=== PATIENT | female | born 1955 | race Caucasian/White ===

== ENCOUNTER 2017-04-04 13:59 | Emergency (ER) | payer OTHER ==
[~2017-04-04] VITALS: Ht 170.2 cm; Wt 104.1 kg
[~2017-04-04 13:59] MED LIST: AMIT10TA6 PO; APIX5TAB PO; ASPI81TA3 PO; ATRV10T PO; Budesonide PO; EPIN0.3P2 IJ; FLEC100T2 PO; FLUO20CA25 PO; GABA-500 PO; GABA-502 PO; LOSA50TA3 PO; MULT-621 PO; OMEG1CAP5 PO; VERA180T5 PO
[2017-04-04 14:07] VITALS: BP 164/107; PULSE 75; RESP 24; O2SAT 98
--- NOTE | 2017-04-04 14:34 | ED.REPORT ---
HPI-Extremity Problem Lower Date of Service April 04, 2017 ED Provider: Bennett Pulliam MD Patient is a 61 year old female with a history of gastric bypass revision, hypertension and atrial fibrillation who had a partial knee replacement a week ago who presents to the ED due to increased right knee pain after a fall 4 days ago. Associated symptoms include mild erythema around the surgical wound, and pain with bearing weight on her right leg. She reports that she was seen at prior to arrival to the ED today but did not have an X-ray done. She denies fever, chills, increasing redness, warth or discharge from the wound. She has an appointment with her orthopedic surgeon in 2 days. Nursing Notes Stated Complaint: RIGHT KNEE PAIN Chief Complaint: Extremity Trauma Nursing Notes Reviewed: Yes Allergies: Coded Allergies: Aminoglycosides (Verified Allergy, Severe, 01/06/15) clindamycin (Verified Allergy, Severe, Rash, 09/04/14) diclofenac (Verified Allergy, Severe, Anaphylaxis, 09/04/14) diphenhydramine (Verified Allergy, Severe, Hives, 07/01/16) patient states benadryl makes her hyper. does not give her hives. ll doxylamine (Verified Allergy, Severe, Hives, 09/04/14) eszopiclone (Verified Allergy, Severe, Hives, 09/04/14) + anxiety misoprostol (Verified Allergy, Severe, Anaphylaxis, 09/04/14) sertraline (Verified Allergy, Severe, Headache, 09/04/14) sulfamethoxazole (Verified Allergy, Severe, Rash, 09/04/14) trazodone (Verified Allergy, Severe, Headache, 09/04/14) trimethoprim (Verified Allergy, Severe, Rash, 09/04/14) fluticasone (Verified Allergy, Intermediate, Rash,Itching,, 09/04/14) zolpidem (Verified Allergy, Intermediate, sleep walk, 09/04/14) Iodinated Contrast Media - Oral and (Unverified Allergy, Mild, Rash, Itching,, 07/01/16) patient states she had itching post iv contrast in 2014. Benadryl was not given after exam, but patient agreed that she should be pre treated for any other cat scans when I talked to her 07/01/16. ll aloe vera (Verified Allergy, Unknown, 09/04/14) aripiprazole (Verified Adverse Reaction, Intermediate, Agitation, 09/04/14 ) bupropion (Verified Adverse Reaction, Intermediate, Headache, 09/04/14) hydrocodone (Verified Adverse Reaction, Intermediate, gi problems, ) lisinopril (Verified Adverse Reaction, Intermediate, cough, 09/04/14) Uncoded Allergies: STREPTOMYCIN SULFATE (Generic Allergy) (Allergy, Unknown, Y, 10/11/05) Scheduled ([Budesonide]) 3 MG CAPCR 9 MG PO DAILY Amitriptyline (Amitriptyline) 10 Mg Tablet 10 MG PO AM Amitriptyline (Amitriptyline) 10 Mg Tablet 20 MG PO HS Apixaban (Eliquis) 5 Mg Tablet 5 MG PO BID Aspirin Chew (Aspirin Chew) 81 Mg Tab.chew 81 MG PO DAILY Atorvastatin (Lipitor) 10 Mg Tab 10 MG PO HS Flecainide Acetate (Flecainide Acetate) 100 Mg Tablet 100 MG PO BID Fluoxetine (Fluoxetine) 20 Mg Capsule 20 MG PO DAILY Gabapentin (Gabapentin) 100 Mg Capsule 100 MG PO DAILY Gabapentin (Gabapentin) 300 Mg Capsule 300 MG PO HS Losartan Potassium (Cozaar) 50 Mg Tablet 50 MG PO DAILY Multivitamin with Minerals (Multiple Vitamin) 1 Each Tablet 1 EACH PO DAILY [place]-3 Fatty Acids/Fish Oil (Fish Oil 1,000 mg Capsule) 1 Each Capsule 3 EACH PO DAILY Verapamil ER (Verapamil ER) 180 Mg Tablet.er 180 MG PO DAILY Scheduled PRN Epinephrine (Epipen 2-Jace) 0.3 Mg/0.3 Ml Auto.injct 0.3 MG IJ PRN For Anaphyllaxis General Time Seen by MD: 14:23 Chief Complaint Knee injury right Hx Obtained From: Patient Arrived By: Walk-in Onset Occurred: 4 days ago Symptom Duration: Since onset Location: : Knee right Immunizations: Unknown Recent Healthcare: No recent hospitalization, Recent doctor visit Past Medical History Past Medical History atrial fibrillation depression-recent hospitalization for suicide attempt/overdose ingestion fibromyalgia with "fibrofog" PTSD sleep apnea hx of heart murmur-had scarlet fever age 2 hypertension dyslipidemia anxiety Reports: Hyperlipidemia, Hypertension Past Surgical History gastric bypass ovarian tumor removed-oopohrectomy back surgery x 2 toe surgery knee surgery left hip surgery for bone spurs. Reports: Cholecystectomy, Tonsillectomy Smoking History Former Smoker Social History Alcohol Use: In recovery Drug Use: Denies drug use Other Social History: Ambulatory Status Independent Review of Systems Review of Systems Note: erythema around the right knee Constitutional: Reports: Chills, Denies: Fever Musculoskeletal: Reports: Extremity pain Neurologic: Reports: Problem walking Complete sys rev & neg: except as marked. Respiratory: Denies: Non-productive cough, Shortness of breath Physical Exam Initial Vital Signs Vital Signs (First) Date Time Temp Pulse Resp B/P Pulse Ox O2 Delivery O2 Flow Rate FiO2 04/04/17 14:07 36.8 75 24 164/107 98 Room Air Initial VS: Reviewed LOWER EXTREMITIES: anterior right knee has a well appearing surgical incision with mild erythema consistent with normal healing indurated no purulent discharge no evidence of proximally spreading erythema no unilateral calf swelling Ankle / Foot: Atraumatic, Full range of motion, No swelling General/Constitutional: Awake, Alert, No acute distress Respiratory / Chest: Atraumatic, No respiratory distress Skin: Atraumatic, Color NL, No rash, Warm, Dry Neurologic: Oriented X3, Speech NL, No motor deficits, No sensory deficits Head / Eyes: Atraumatic, Normocephalic, PERRL, EOMI Upper Extremity / MS: Atraumatic, Full range of motion Psychiatric: Affect NL, Mood NL Interpretation & Diagnostics Interpretation & Diagnostics: KNEE CT: IMPRESSION: 1. Postsurgical changes demonstrated status post medial unicompartmental arthroplasty. 2. Mild irregularity and fragmentation along the medial aspect of the tibial spine along the surgical margin likely reflects postsurgical changes. An acute fracture is not fully excluded but given the location isolated fracture in this region appears less likely. 3. Bvszz-pe-rldrqeky size joint effusion and postsurgical changes demonstrated within the anterior soft tissues. Dictated by: Haroon Arroyo M.D. on 04/04/2017 at 15:52 Approved by: Haroon Arroyo M.D. on 04/04/2017 at 16:00 X-Ray Interpretation Xray Interpretation: IMPRESSION: 1. Suspect fracture of the tibial eminence. 2. Small knee joint effusion. 3. Chondrocalcinosis. 4. Medial hemiarthroplasty with intact prosthesis. Dictated by: Nirmal Blanchard M.D. on 04/04/2017 at 16:04 Approved by: Nirmal Blanchard M.D. on 04/04/2017 at 16:07 X-Ray Ordered: Knee right Interpretation / Wet Read by: Interpret - Radiologist Re-Eval/Medical Decision Med Decision/Clinical Course Patient is a 61 year old female with a history of gastric bypass revision, hypertension and atrial fibrillation who had a partial knee replacement a week ago who presents to the ED due to increased right knee pain after a fall 4 days ago. Associated symptoms include mild erythema around the surgical wound, and pain with bearing weight on her right leg. She reports that she was seen at prior to arrival to the ED today but did not have an X-ray done. She denies fever, chills, increasing redness, warth or discharge from the wound. She has an appointment with her orthopedic surgeon in 2 days. Here in the emergency department the patient is afebrile stable vital signs and in no apparent distress. Examination as above reveals mild erythema surrounding her surgical site consistent with normal wound healing. There is no purulent drainage, induration approximately extending redness suggestive of infection or cellulitis. Plain films of the right knee were obtained as below: 1. Suspect fracture of the tibial eminence. 2. Small knee joint effusion. 3. Chondrocalcinosis. 4. Medial hemiarthroplasty with intact prosthesis. Given the presence of possible fracture I opted to proceed with a CT of her knee as below: 1. Postsurgical changes demonstrated status post medial unicompartmental arthroplasty. 2. Mild irregularity and fragmentation along the medial aspect of the tibial spine along the surgical margin likely reflects postsurgical changes. An acute fracture is not fully excluded but given the location isolated fracture in this region appears less likely. 3. Qircr-zm-nwopqcbi size joint effusion and postsurgical changes demonstrated within the anterior soft tissues. Above findings all seem most consistent with normal postoperative examination. Patient remained afebrile with no signs of infection. She has close follow-up in a couple of days with orthopedic surgeon and is advised to return to the emergency room immediately should she develop any fevers, chills or extending erythema. I do not feel that antibiotics are immediately warranted given her presentation today. She was able to weight-bear on her leg and I feel that she is appropriate for discharge. Prior to discharge follow-up and return precautions were reviewed in detail with the patient who verbalized understanding and agreement with the plan. The patient was discharged in stable condition. Re-Evaluation/Progress #1: Time of Eval: 15:46 Re-Evaluation/Progress Note: Discussed plan for CT. Re-Evaluation/Progress #2: Time of Eval: 17:13 Re-Evaluation/Progress Note: Discussed results and plan for discharge. The patient understands and agrees to the plan for discharge. All questions were addressed. Counseled Regarding: Diagnosis, Lab results, Need for follow-up, When/why to return to ED Discharge & Departure Impression: Primary Impression: Fall Encounter type: initial encounter Qualified Code: W19.XXXA - Unspecified fall, initial encounter Additional Impressions: Post-op pain Encounter for postoperative wound check History of total knee replacement Laterality: right Qualified Code: Z96.651 - Presence of right artificial knee joint Disposition: Home Discharge Condition All VS Reviewed: Yes Condition: Stable Patient Instructions: Knee Pain (ED) Additional Instructions: Thank you for seeking care at the emergency room. It is difficult for us to make definitive diagnoses in the ED but we believe that you are experiencing normal redness and healing from your surgery. There was no evidence of infection. Your X-ray and CT looked normal. Our primary goal today in the ED was to evaluate you for any life-threatening conditions. Your evaluation was reassuring. You can continue to ice your knee as needed to help. You can take Tylenol as needed for pain. Keep your appointment with your Orthopedic surgeon for follow up. You should return to the ED immediately if the redness spreads further than it is now, has pus drainage, you develop fever or any other concerning signs or symptoms. Thank you for letting us partake in your care today. Referrals: Sepideh Thomas (PCP) (Family) Fer Attestation Portions of this note were transcribed by Bebe Avelar. I, Dr. Pulliam personally performed the history, physical exam and medical decision-making; I reviewed and confirmed the accuracy of the information in the transcribed note. Signed by: Fer Whitley, 04/04/17 and 1720 copies to: Sepideh Thomas Beck O MD April 04, 2017 14:34 Jonna Avelar April 04, 2017 15:46
--- NOTE | 2017-04-04 16:09 | DRSVH ---
PROCEDURE: X-RAY RIGHT KNEE, THREE VIEWS ([id number]) INDICATIONS: recent surgery, pain/fall TECHNIQUE: 3 views of the knee were acquired. COMPARISON: [facility], CR, KNEE SERIES RT, 03/02/2017, 11: 25. [facility], CR, KNEE 3VW (RT), 09/04/2012, 15:01. FINDINGS: Bones: Probable fracture of the tibial eminence. There is arthroplasty with prosthesis in the medial femorotibial compartment. Chondrocalcinosis is present in the lateral femorotibial joint. No suspici ous bony lesions. Soft tissues: Small knee joint effusion. No suspicious soft tissue calcifications. Diffuse soft tis jayshree swelling. IMPRESSION: 1. Suspect fracture of the tibial eminence. 2. Small knee joint effusion. 3. Chondrocalcinosis. 4. Medial hemiarthroplasty with intact prosthesis. Dictated by: Nirmal Blanchard M.D. on 04/04/2017 at 16:04 Approved by: Nirmal Blanchard M.D. on 04/04/2017 at 16:07
--- NOTE | 2017-04-04 17:02 | DRSVH ---
PROCEDURE: CT KNEE RIGHT W/O CONTRAST ([id number]) INDICATIONS: Status post fall one week postop with possible fracture on x-ray. TECHNIQUE: Noncontrast 1-1.5 mm axial sections acquired from the mid-patella to the proximal tibia, with coronal and sagittal reformats. COMPARISON: [facility], CR, KNEE SERIES RT, 03/02/2017, 11: 25. [facility], CR, XR KNEE 3VW RT, 04/04/2017, 15:39. FINDINGS: Image quality: There is extensive associated metallic streak artifact from patient's surgical hardwar e limiting evaluation. Bones: There are postsurgical changes status post medial unicompartmental arthroplasty. There is ext ensive associated metallic streak artifact limiting evaluation. There is also osteopenia of the visu alized osseous structures limiting evaluation for fracture lines. There is mild irregularity and fra gmentation along the medial aspect of the tibial spine along the fracture margin corresponding to the finding seen on recent x-ray. There is no definite displaced or depressed medial tibial plateau fra cture. The lateral tibial plateau appears intact without depressed fracture. The distal femur also appears grossly intact. Soft tissues: There is a small to moderate size joint effusion likely related to recent surgery. Pos toperative changes also demonstrated within the anterior soft tissues with a surgical incision as wel l as foci of tissue gas. IMPRESSION: 1. Postsurgical changes demonstrated status post medial unicompartmental arthroplasty. 2. Mild irregularity and fragmentation along the medial aspect of the tibial spine along the surgica l margin likely reflects postsurgical changes. An acute fracture is not fully excluded but given the location isolated fracture in this region appears less likely. 3. Lqvzt-oc-lsbfpnwu size joint effusion and postsurgical changes demonstrated within the anterior s oft tissues. Dictated by: Haroon Arroyo M.D. on 04/04/2017 at 15:52 Approved by: Haroon Arroyo M.D. on 04/04/2017 at 16:00
[2017-04-04 17:34] VITALS: BP 170/95; PULSE 71; RESP 16; O2SAT 98
== END 2017-04-04 17:36 | disposition home or self-care (01) ==
LOC: SED 13:59
DX: G89.18 Other acute postprocedural pain (principal); M25.561 Pain in right knee; W19.XXXA Unspecified fall, initial encounter; Y92.009 Unspecified place in unspecified non-institutional (private) residence as the place of occurrence of the external cause; Y93.89 Activity, other specified; Y99.8 Other external cause status; I10 Essential (primary) hypertension; I48.91 Unspecified atrial fibrillation; F32.9 Major depressive disorder, single episode, unspecified; F43.10 Post-traumatic stress disorder, unspecified; E78.5 Hyperlipidemia, unspecified; F41.9 Anxiety disorder, unspecified; Z96.651 Presence of right artificial knee joint; Z48.01 Encounter for change or removal of surgical wound dressing; Z98.84 Bariatric surgery status; Z91.5 Personal history of self-harm; Z87.891 Personal history of nicotine dependence; Z79.82 Long term (current) use of aspirin; Z88.8 Allergy status to other drugs, medicaments and biological substances; Z88.1 Allergy status to other antibiotic agents; Z88.6 Allergy status to analgesic agent; Z88.2 Allergy status to sulfonamides; Z88.5 Allergy status to narcotic agent; Z91.041 Radiographic dye allergy status

== ENCOUNTER 2017-08-01 17:51 | Emergency (ER) | payer OTHER ==
[~2017-08-01] VITALS: Ht 170.2 cm; Wt 93.2 kg
[2017-08-01 17:59] VITALS: BP 167/102; PULSE 56; RESP 16; O2SAT 99
--- NOTE | 2017-08-01 18:27 | ED.REPORT ---
HPI-Neurologic Deficit Date of Service Aug 01, 2017 ED Provider: Micah Rose MD The patient is a 62 year old female with a hx of arthritis, fibromyalgia, PTSD, and atrial fibrillation on blood thinners presenting to the ED complaining of falling and hitting her head on a table 5 days ago after feeling dizzy. She describes the dizziness as more of a lightheadedness and weakness. Now she says that the lightheadedness and weakness comes and goes. 5 days ago was the first time this has happened to her before. She had a brain CT taken earlier today that showed possible signs of a stroke. Associated symptoms include headache, right hand shakiness, and blurry vision which she describes as "off" and elaborates by saying she sees a light spot in the middle, but mostly in her right eye. Denied symptoms include trouble swallowing or talking, weakness in her hands or feet, SOB, nausea, vomiting, fever, or chills. Nursing Notes Stated Complaint: GLF/CT RESULTS/PENDERGRAST REFERRED Chief Complaint: Head, Face, Neck Trauma Nursing Notes Reviewed: Yes Allergies: Coded Allergies: Aminoglycosides (Verified Allergy, Severe, 01/06/15) clindamycin (Verified Allergy, Severe, Rash, 09/04/14) diclofenac (Verified Allergy, Severe, Anaphylaxis, 09/04/14) diphenhydramine (Verified Allergy, Severe, Hives, 07/01/16) patient states benadryl makes her hyper. does not give her hives. ll doxylamine (Verified Allergy, Severe, Hives, 09/04/14) eszopiclone (Verified Allergy, Severe, Hives, 09/04/14) + anxiety misoprostol (Verified Allergy, Severe, Anaphylaxis, 09/04/14) sertraline (Verified Allergy, Severe, Headache, 09/04/14) sulfamethoxazole (Verified Allergy, Severe, Rash, 09/04/14) trazodone (Verified Allergy, Severe, Headache, 09/04/14) trimethoprim (Verified Allergy, Severe, Rash, 09/04/14) fluticasone (Verified Allergy, Intermediate, Rash,Itching,, 09/04/14) zolpidem (Verified Allergy, Intermediate, sleep walk, 09/04/14) Iodinated Contrast Media - Oral and (Unverified Allergy, Mild, Rash, Itching,, 07/01/16) patient states she had itching post iv contrast in 2014. Benadryl was not given after exam, but patient agreed that she should be pre treated for any other cat scans when I talked to her 07/01/16. ll aloe vera (Verified Allergy, Unknown, 09/04/14) aripiprazole (Verified Adverse Reaction, Intermediate, Agitation, 09/04/14 ) bupropion (Verified Adverse Reaction, Intermediate, Headache, 09/04/14) hydrocodone (Verified Adverse Reaction, Intermediate, gi problems, ) lisinopril (Verified Adverse Reaction, Intermediate, cough, 09/04/14) Uncoded Allergies: STREPTOMYCIN SULFATE (Generic Allergy) (Allergy, Unknown, Y, 10/11/05) Scheduled ([Budesonide]) 3 MG CAPCR 9 MG PO DAILY Amitriptyline (Amitriptyline) 10 Mg Tablet 10 MG PO AM Amitriptyline (Amitriptyline) 10 Mg Tablet 20 MG PO HS Apixaban (Eliquis) 5 Mg Tablet 5 MG PO BID Aspirin Chew (Aspirin Chew) 81 Mg Tab.chew 81 MG PO DAILY Atorvastatin (Lipitor) 10 Mg Tab 10 MG PO HS Flecainide Acetate (Flecainide Acetate) 100 Mg Tablet 100 MG PO BID Fluoxetine (Fluoxetine) 20 Mg Capsule 20 MG PO DAILY Gabapentin (Gabapentin) 100 Mg Capsule 100 MG PO DAILY Gabapentin (Gabapentin) 300 Mg Capsule 300 MG PO HS Losartan Potassium (Cozaar) 50 Mg Tablet 50 MG PO DAILY Multivitamin with Minerals (Multiple Vitamin) 1 Each Tablet 1 EACH PO DAILY [place]-3 Fatty Acids/Fish Oil (Fish Oil 1,000 mg Capsule) 1 Each Capsule 3 EACH PO DAILY Verapamil ER (Verapamil ER) 180 Mg Tablet.er 180 MG PO DAILY Scheduled PRN Epinephrine (Epipen 2-Jace) 0.3 Mg/0.3 Ml Auto.injct 0.3 MG IJ PRN For Anaphyllaxis General Time Seen by Provider: 18:25 Chief Complaint Other (lightheadedness) Hx Obtained From: Patient Arrived By: Walk-in Sudden in Onset?: Yes Onset Occurred: 5 days ago Symptom Duration: Waxes and wanes Associated with: Reports: Headache, Visual disturbance (blurry vision) Pertinent Negative: Pt denies other symptoms Recent Healthcare: No recent hospitalization, Recent doctor visit Similar Sx Previous: No Past Medical History Past Medical History atrial fibrillation depression-recent hospitalization for suicide attempt/overdose ingestion fibromyalgia with "fibrofog" PTSD sleep apnea hx of heart murmur-had scarlet fever age 2 hypertension dyslipidemia anxiety Reports: Hyperlipidemia, Hypertension Past Surgical History gastric bypass ovarian tumor removed-oopohrectomy back surgery x 2 toe surgery knee surgery left hip surgery for bone spurs. Reports: Cholecystectomy, Tonsillectomy Smoking History Former Smoker Social History Alcohol Use: In recovery Drug Use: Denies drug use Other Social History: Ambulatory Status Independent Review of Systems no trouble talking Constitutional: Denies: Chills, Fever Eyes: Reports: Blurred bilateral Respiratory: Denies: Shortness of breath GI: Denies: Dysphagia, Nausea, Vomiting Neurologic: Reports: Headache, Lightheaded, Shaking (right hand), Denies: Weakness (no weakness in hands or feet) Complete sys rev & neg: except as marked. Physical Exam Initial Vital Signs Vital Signs (First) Date Time Temp Pulse Resp B/P Pulse Ox O2 Delivery O2 Flow Rate FiO2 08/01/17 17:59 37.1 56 16 167/102 99 Room Air Initial VS: Reviewed Neck: Supple, Non-tender, Full range of motion Abdomen / GI: Soft, Non-tender, No guarding, No rebound, No distention Back: No CVA tenderness Skin: Warm, Dry, No cyanosis Psychiatric: Mood/affect normal, Behavior normal, Normal thought content General/Constitutional: Awake, Alert Head / Eyes: Atraumatic, Normocephalic, PERRL Respiratory / Chest: Atraumatic, Breath sounds NL, Breath sounds = bilat, No respiratory distress Cardiovascular: Heart rate NL, Regular rhythm, Heart sounds NL, No gallop, No murmurs, No rubs No carotid bruit Neurologic: Speech NL no facial droop no asymmetry in face no visual field cuts Upper Extremity / 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 No MRI evidence of acute intracranial pathology. No left occipital lobe infarction to correspond with the questioned finding on the earlier CT. 2. Sinusitis. Dictated by: Talat Lobo M.D. on 08/01/2017 at 19:49 Lab Results Interpretation Result Diagram: 08/01/17200508/01/17 2006 Test 08/01/17 20:06 White Blood Count 4.3th/mm3 (3.8-10.1) Red Blood Count 4.13mil/mm3 (3.90-5.20) Hemoglobin 13.2g/dL (12.0-15.6) Hematocrit 39.0% (35.0-46.0) Mean Corpuscular Volume 94.4fL (81-100) Mean Corpuscular Hemoglobin 32.0pg (27.0-35.0) Mean Corpuscular Hemoglobin Concent 33.8% (32.0-37.0) Red Cell Distribution Width 13.5% (12.3-15.4) Platelet Count 206bil/L (150-400) Neutrophils (%) (Auto) 51.5% (40-74) Lymphocytes (%) (Auto) 30.6% (14-46) Monocytes (%) (Auto) 10.0% (4-12) Eosinophils (%) (Auto) 6.7% (0-5) Basophils (%) (Auto) 1.2% (0-3) Sodium Level 139mEq/L (134-144) Potassium Level 4.2mEq/L (3.5-5.2) Chloride Level 99mEq/L (97-108) Carbon Dioxide Level 24mmol/L (18-29) Blood Urea Nitrogen 16mg/dL (8-27) Creatinine 0.91mg/dL (0.57-1.00) Estimat Glomerular Filtration Rate 89mL/min (>59) Glucose Level 93mg/dL (60-99) Calcium Level 9.2mg/dL (8.5-10.1) Total Bilirubin 0.3mg/dL (0.0-1.2) Aspartate Amino Transf (AST/SGOT) 20U/L (0-50) Alanine Aminotransferase (ALT/SGPT) 15U/L (0-32) Alkaline Phosphatase 100U/L (25-165) Troponin T < 0.010ug/L (0.0-0.011) Total Protein 7.6g/dL (6.4-8.4) Albumin 4.2g/dL (3.4-5.0) Hold Merchant Top Tube Received (Received) ECG Interpretation Time: 18:54 Normal ECG Interpretation: Normal ECG w/ rate of... (53), Normal sinus rhythm X-Ray Chest Interpretation Chest Xray Interpretation: IMPRESSION: No radiographic evidence of acute cardiopulmonary pathology. Dictated by: Talat Lobo M.D. on 08/01/2017 at 19:54 View: Portable, 1 view Interpretation / Wet Read by: Interpret - Radiologist CT Head Interpretation CT Head taken 08/01/2017 in prior appopintment at : IMPRESSION: 1. Loss of cohen-white matter differentiation involving the left occipital lobe which could represent a subacute infarct. Please correlate with clinical findings to exclude vision changes associated with occipital infarct. Recommend MRI of the brain if clinically indicated 2. Large right occipital scalp hematoma. 3. Pansinusitis. Dictated by: Maryam Rivera MD, PhD on 08/01/2017 at 16:07 Study: Head CT no contrast Interpretation / Wet Read by: Interpret - Radiologist Re-Eval/Medical Decision Re-Evaluation/Progress #1: Time of Eval: 18:53 Re-Evaluation/Progress Note: Pt rechecked. Discussed plan for MRI scan. Patient understands and agrees with the plan. All questions addressed at this time. Re-Evaluation/Progress #2: Time of Eval: 20:29 Re-Evaluation/Progress Note: Patient rechecked. Discussed reassuring MRI results. Re-Evaluation/Progress #3: Time of Eval: 20:58 Re-Evaluation/Progress Note: Patient rechecked. Recommended to follow up with cardiology first and then neurology. Return to the ED instructions given. Discussed plan to discharge. All questions addressed at this time. Consultation : Referral / Consult Name: Johanny Hall MD Consulted With: Neurology Call Returned at: 18:47 Note: If the pt does not have recent stroke on MR brain, then the pt can be discharged. Counseled Regarding: Diagnosis, Lab results, Need for follow-up, When/why to return to ED Discharge & Departure Impression: Primary Impression: Syncope Syncope type: unspecified Qualified Code: R55 - Syncope and collapse Additional Impression: Contusion of scalp Encounter type: subsequent encounter Qualified Code: S00.03XD - Contusion of scalp, subsequent encounter Ruled Out: Stroke Disposition: Home Discharge Condition All VS Reviewed: Yes Condition: Improved Additional Instructions: Emergency Department evaluation included interview, examination, labs and ECG and MRI brain. Concern for subacute stroke on CT brain is not born out on MRI brain, the MRI is clearly the better study. Clinically examination does not suggest recent stroke. Vital signs show hypertension at this point and mildly low heart rate, these do not change significantly with standing. Labs are reassuring. Overall it is felt that you are safe for discharge. Please follow- up with cardiology soon regarding this episode of fainting. If you have recurrent symptoms return to the emergency department. Turn emergency department for severe headache or vomiting. Follow-up with primary care soon also. Continue previous home medications. Referrals: Sepideh Thomas (PCP) Jairon Leon MD Attestation Portions of this note were transcribed by Stefani Angel and Raymundo Alan. I, Dr. Rose personally performed the history, physical exam and medical decision- making; I reviewed and confirmed the accuracy of the information in the transcribed note. Signed by: Fer Knight, 08/01/2017 copies to: Jairon Leon MD; Sepideh Thomas Donald L MD Aug 01, 2017 18:27 Aug 01, 2017 18:40
--- NOTE | 2017-08-01 19:55 | DRSVH ---
PROCEDURE: MRI BRAIN WITHOUT CONTRAST ([id number]) INDICATIONS: possible subacute CVA on CT TECHNIQUE: Noncontrast axial T1 spin echo, axial T2 fast spin echo, sagittal and axial FLAIR, coronal T2 fast sp in echo, axial gradient echo, axial diffusion and ADC through the brain. COMPARISON: [facility], MR, BRAIN W/O CONTRAST, 12/23/2014, 15:05. Head CT from 08/01/2017 FINDINGS: Image quality: Excellent. CSF Spaces: Basal cisterns are patent. No extra-axial fluid collections. Ventricles are normal in size and shape. Brain: No intracranial masses or hemorrhage. Coello/white matter interface is normal. Brainstem appe ars normal. Diffusion-weighted images demonstrate no acute ischemic insult. No chronic ischemic ins ults. Normal intravascular flow voids are present. Skull and face: Calvarium has normal marrow signal. Orbits appear normal. Sinuses: Marked mucosal thickening throughout the ethmoid air cells and frontal sinuses and to a less er extent sphenoid and maxillary sinuses.. IMPRESSION: 1. No MRI evidence of acute intracranial pathology. No left occipital lobe infarction to correspond w ith the questioned finding on the earlier CT. 2. Sinusitis. Dictated by: Talat Lobo M.D. on 08/01/2017 at 19:49 Approved by: Talat Lobo M.D. on 08/01/2017 at 19:53
--- NOTE | 2017-08-01 19:57 | DRSVH ---
PROCEDURE: X-RAY CHEST ONE VIEW, PORTABLE ([id number]) INDICATIONS: cva TECHNIQUE: One view of the chest was acquired. COMPARISON: [facility], , CHEST 1VW (PORTABLE), 01/06/2015, 16:09. [facility], CR, CHEST 1VW (PORTABLE), 09/10/2014, 18:06. [facility], , CHEST 1VW (PORTABLE), 09/04/2014, 18:55. FINDINGS: Surgical changes and devices: None. Lungs and pleura: No pleural effusions or pneumothorax. Lungs are clear. Mediastinum: Mediastinal contours appear normal. Heart size is normal. Bones and chest wall: No suspicious bony lesions. Overlying soft tissues appear unremarkable. IMPRESSION: No radiographic evidence of acute cardiopulmonary pathology. Dictated by: Talat Lobo M.D. on 08/01/2017 at 19:54 Approved by: Talat Lobo M.D. on 08/01/2017 at 19:55
[2017-08-01 20:21] LABS: BASOPHILS % (AUTO) 1.2 % (0-3); EOSINOPHILS % (AUTO) 6.7 % (0-5); Mean Corpuscular Volume 94.4 fL (81-100); NEUTROPHILS % (AUTO) 51.5 % (40-74); Platelet Count 206 bil/L (150-400)
[2017-08-01 20:30] VITALS: BP_SYST 173; BP_SYST 190; BP_DIAS 111; BP_DIAS 86
[2017-08-01 20:47] LABS: TROPONIN T < 0.010 ug/L (0.0-0.011)
[2017-08-01 21:14] VITALS: BP 159/118; PULSE 59; RESP 16; O2SAT 96
== END 2017-08-01 21:12 | disposition home or self-care (01) ==
LOC: SED 17:51
DX: R55 Syncope and collapse (principal); S00.03XD Contusion of scalp, subsequent encounter; W18.09XD Striking against other object with subsequent fall, subsequent encounter; Y93.01 Activity, walking, marching and hiking; Y99.8 Other external cause status; Y92.008 Other place in unspecified non-institutional (private) residence as the place of occurrence of the external cause; I48.91 Unspecified atrial fibrillation; M79.7 Fibromyalgia; F43.10 Post-traumatic stress disorder, unspecified; E78.5 Hyperlipidemia, unspecified; F41.9 Anxiety disorder, unspecified; I10 Essential (primary) hypertension; Z87.891 Personal history of nicotine dependence; Z98.84 Bariatric surgery status; Z79.82 Long term (current) use of aspirin; Z88.8 Allergy status to other drugs, medicaments and biological substances; Z88.1 Allergy status to other antibiotic agents; Z88.2 Allergy status to sulfonamides; Z88.5 Allergy status to narcotic agent